=== PATIENT | female | born 1945 | race Caucasian/White ===

== ENCOUNTER → 2016-12-06 | Outpatient (CLI) | payer OTHER ==
[~2016-12-06] MED LIST: ACIDOPHILUS1 EAC3 PO; ADULT LOW DOSE81 MG PO; ATIVAN0.5 MG PO; CITRACAL + D C1 EACH PO; CO Q-1010 MG PO; FISH OIL 1,2001 EAC3 PO; FLAXSEED OIL1000 MG PO; GREEN TEA1 EACH PO; MULTIVITAMINS PO; PREVACID PO; PROTONIX40 M2 PO; RANITIDINE PO; RECLAST 55 MG/100 M IV; SERTRALINE HCL100 MG PO; ULTRAM 50MG TAB50 MG PO; VITAMIN D400 UNI1 PO; ZOCOR 20 MG TAB20 M1 PO; ZOLOFT 50 MG TA50 M1 PO; ZOLOFT100 MG PO
== END ==
LOC: RAD 02:53
DX: Z12.31 Encounter for screening mammogram for malignant neoplasm of breast (principal)

== ENCOUNTER → 2017-12-12 | Outpatient (CLI) | payer OTHER | LOC: RAD 00:43 | DX: Z12.31 Encounter for screening mammogram for malignant neoplasm of breast (principal) ==

== ENCOUNTER → 2018-09-13 | Outpatient (CLI) | payer OTHER | LOC: RAD 13:46 | DX: M25.562 Pain in left knee (principal) ==

== ENCOUNTER → 2018-12-13 | Outpatient (CLI) | payer OTHER | LOC: RAD 02:50 | DX: Z12.31 Encounter for screening mammogram for malignant neoplasm of breast (principal) ==

== ENCOUNTER → 2019-12-17 | Outpatient (CLI) | payer OTHER | LOC: BC 10:01 | DX: Z12.31 Encounter for screening mammogram for malignant neoplasm of breast (principal) ==

== ENCOUNTER → 2020-12-20 | Outpatient (CLI) | payer OTHER, MEDICARE | LOC: BC 10:44 | PROVIDERS: ATTEND Internal Medicine Geriatric Medicine | DX: Z12.31 Encounter for screening mammogram for malignant neoplasm of breast (principal) ==

== ENCOUNTER → 2021-05-11 | Outpatient (CLI) | payer OTHER, MEDICARE | LOC: RAD 12:41 | PROVIDERS: ATTEND Internal Medicine Geriatric Medicine | DX: M47.26 Other spondylosis with radiculopathy, lumbar region (principal); M51.15 Intervertebral disc disorders with radiculopathy, thoracolumbar region ==

== ENCOUNTER → 2021-08-15 | Outpatient (CLI) | payer OTHER, MEDICARE | LOC: MRI 08-09 10:06 | PROVIDERS: ATTEND Internal Medicine Geriatric Medicine | DX: M51.36 Other intervertebral disc degeneration, lumbar region (principal); M79.604 Pain in right leg ==

== ENCOUNTER → 2021-09-13 | Outpatient (CLI) | payer OTHER, MEDICARE ==
[~2021-09-13] VITALS: Ht 167.6 cm; Wt 68.0 kg
[~2021-09-13] MED LIST changes: +MELOXICAM15 MG PO; +NEURONTIN 300M300 M2 PO; +NORVASC5 MG PO; +SERTRALINE HCL150 MG PO; +TEMAZEPAM15 MG PO; +ZOCOR20 MG PO
[2021-09-13 08:54] VITALS: BP 130/78
--- NOTE | 2021-09-13 09:10 | NUR ---
Pain Clinic Assessment: 1. History of Osteoarthritis: Not Applicable History of Rheumatoid Arthritis: Not Applicable 2. Height: 5 ft. 6 in. 167.6 cm. Weight: 150.0 lb. oz. 68.040 kg. Patient's BMI: 24.2 3. Vital Signs: BP: 130/78 Pulse: 98 Resp: 14 Temp: 02 Sat: 97 ECG Mon: 4. Pain Intensity: 5 5. Fall Risk: Dizziness: N Needs help standing or walking: N Fallen in the last 3 months: N Fall risk comments: 6. Patient on Blood Thinner: None 7. History of Hypertension: N 8. Opioid Therapy greater than 6 weeks: Opiate Contract Signed: 9. Risk Assessment Tool Provided: 1 LOW RISK 10. Functional Assessment Tool: 43 11. Recreational Drug Use: Never Drug Type: Tobacco Use: Former Smoker Tobacco Type: Amount or Packs/day: How Many Years: Alcohol Use: No Frequency: Quant:
--- NOTE | 2021-09-14 09:44 | HPC ---
[facility] [place] [address] PAIN MANAGEMENT CONSULTATION Name: ALISON MERLOS Room #: REG [facility].Dorothy.#: [id number] Admission: 09/13/21 Attend Phys: Michael Meza DO Discharge: Date of : 47 Report #: [id number] THIS REPORT FOR: cc: Jared Barton MD,Jared Meza,Michael Lala DO ~ cc: Dr. Jared Barton MD DATE OF SERVICE: 09/13/2021 CHIEF COMPLAINT: Low back pain, right lower extremity pain with paresthesias. HISTORY OF PRESENT ILLNESS: As you know, the patient is a very pleasant 76-year-old female reporting acute onset of low back pain, right lower extremity pain with paresthesias, presenting in May 2021. The patient denies injury or trauma. She states pain begins in the buttock area, radiates down the right leg to the lateral calf. She has sought treatment with [id number] medications, rest, relaxation without much in the way of benefit. She has undergone chiropractic manipulation with some improvement in symptoms. She has been started on gabapentin, taking 300 mg p.o. at bedtime, without side effects, but no benefits. She has undergone recent imaging of the lumbar spine, which showed some changes at the L4-L5 level that prompted a referral on to our clinic to discuss treatment options. The patient reports today her pain is continuous. She describes pain more of tenderness and intermittent numbness and tingling. She describes a pain level at 7/10 today, daily average at 9/10, worst pain has been 10/10. The patient states the pain is exacerbated with walking any long distances, lying on her right side. Pain is improved with ice packs therapy, chiropractic manipulation. She has been referred to our service to discuss interventional treatment options to address suspected lumbar radiculopathy. PAST MEDICAL HISTORY: 1. Chronic low back pain. 2. Asthma, depression, osteoporosis, and cancer. PAST SURGICAL HISTORY: None. SOCIAL HISTORY: The patient denies tobacco, alcohol or IV or illicit drug use. She is retired in 11/2020. She is not receiving workmen's compensation nor is she trying to obtain disability benefits. She is not in litigation in regards to pain. She is unaccompanied at today's visit. REVIEW OF SYSTEMS: Positive for eye disease, wearing corrective eyewear, nocturia, low back pain, and asthma and depression. All other review of systems negative per 12-point review of systems other than those listed in history of present illness. [address] [address] PAIN MANAGEMENT CONSULTATION Name: ALISON MERLOS Room #: REG [facility] Sierra#: [id number] Admission: 09/13/21 Attend Phys: Michael Meza DO Discharge: Date of : 47 Report #: [id number] Pain impact score 43/70, moderate to severe interference of daily activities secondary to pain. ALLERGIES: No known drug allergies. CURRENT MEDICATIONS: Temazepam 15 mg p.o. at bedtime, amlodipine 5 mg per day, gabapentin 300 mg p.o. at bedtime, meloxicam 15 mg per day, sertraline 150 per day, and simvastatin 20 mg per day. IMAGING: MRI lumbar spine obtained 08/15/2021 shows no acute findings. There is multilevel degenerative disk disease, most prevalent at the L4-L5 level, which is moderate in nature. She has moderate facet arthropathy at L4-L5, mild broad-based disk bulge. Hypertrophic ligamentum flavum. No significant central canal stenosis. There is some neural foraminal narrowing at this level. L5-S1 minimal degenerative disk disease, moderate facet arthropathy, mild neural foraminal narrowing.. The L3-4 level shows no significant findings. PQRS: The patient has known arthritic changes of the lumbar spine. No rheumatoid arthritis, placing pain today at 5/10, not a fall risk, has not had a fall in last 3 months. She is not on blood thinners, but is treated for hypertension. She is on no opioids, has a low opioid addiction potential. Pain impact is 43/70. Moderate to severe interference of daily activities secondary to pain. PHYSICAL EXAM: VITAL SIGNS: Blood pressure 130/78, pulse 98, respiratory rate 14 and unlabored. The patient is 97% on room air. Height 5 feet 6 inches tall, weight 150 pounds, BMI calculated 24.2. GENERAL: Well-developed, well-nourished, well-hydrated 76-year-old female appearing her stated age, placing current pain score at 5/10. HEENT: Normocephalic, atraumatic. Pupils equal, round and responsive. She is wearing a facemask in compliance with COVID-19 regulations. Hearing is symmetrical. LUNGS: Clear, no wheeze, rhonchi or rales. CARDIOVASCULAR: Regular. No appreciable gallop or rub. EXTREMITIES: Showed no clubbing, no cyanosis. No appreciable edema. MUSCULOSKELETAL: Lower extremity strength is symmetrical, 5/5, intact to light touch from L1 through S2 dermatomes. Seated straight leg raising negative. Supine straight leg raising is equivocal right, negative for left. Ankle clonus negative. Babinski is negative. Lumbar provocation testing is met with no increase in overall pain. Gait appears normal. She is able to toe walk, heel walk without complications. ASSESSMENT: 1. Lumbar radiculopathy. [facility] [address] [place] [address] PAIN MANAGEMENT CONSULTATION Name: ALISON MERLOS Room #: REG [facility] Sierra#: [id number] Admission: 09/13/21 Attend Phys: Michael Meza DO Discharge: Date of : 47 Report #: [id number] 2. Lumbosacral spondylosis with radicular symptoms. 3. Degeneration of lumbar spine. PLAN: 1. Based on today's physical exam and history, the patient has provided, the description the patient uses in regards to pain as well as location of the symptoms with its distribution from the buttock all the way to the right lateral lower leg, likely source of the patient's symptoms is a lumbar radiculopathy. We discussed with the patient the findings of her MRI. I am pleased to advise the patient that there does not appear to be any surgical need at this point. I do feel conservative treatment would be beneficial. We discussed those treatments after a review of the MRI and how the MRI findings correlate to her symptoms. The following was discussed with the patient, his treatment options. We discussed physical therapy, stretching exercises and core strengthening as a treatment approach. We discussed adjustments in medication management. She is on an extremely low dose of gabapentin and could be quite quickly escalated to doses, which we would find more efficacy. I believe that given her age and her weight, she would likely wind up somewhere between 600 mg 3 times a day, 900 mg 3 times a day to gain analgesic effect. We discussed with the patient lumbar epidural injection under fluoroscopic guidance for which she was referred to our clinic. We also discussed surgical options, though again the minimal findings in her MRI would not require surgical options. After reviewing the risks and benefits of all proposed treatment options, the patient chose to undergo lumbar epidural injection under fluoroscopic guidance. 1. The patient has been advised risks and benefits of a lumbar epidural injection. These risks include but are not necessarily limited to bleeding, bruising, infection, worsening pain, no relief of pain, also risk of temporary or permanent muscle weakness, temporary or permanent nerve damage, possible paralysis, post-dural puncture headache and . The patient states understood and wished to proceed. 2. No medication changes made at today's visit. We recommend the patient continue current medical therapy as prior prescribed. 3. We will plan to see the patient back in followup visit on an as needed basis for the next in the series of lumbar epidural injections. We are hopeful the patient will see good and prolonged benefit with today's procedure. 4. We wish to thank Dr. Jared Barton for the referral of this patient to our clinic. We will keep you apprised of her response to treatment as we address suspected lumbar radiculopathy. Again, we wish to thank you for the opportunity to see the patient in consultation. PROCEDURE NOTE. DESCRIPTION OF PROCEDURE: L5-S1 right parasagittal epidural steroid injection under fluoroscopic guidance. [address] [address] PAIN MANAGEMENT CONSULTATION Name: ALISON MERLOS Room #: REG [facility]#: [id number] Admission: 09/13/21 Attend Phys: Michael Meza DO Discharge: Date of : 47 Report #: [id number] This is the first procedure of the first series that the patient is undergoing. After obtaining written consent, the patient was taken back to the fluoroscopy suite, placed in a prone position with pillow under the abdomen to decrease lumbar lordosis. The skin overlying the lumbosacral area was then prepped and draped in aseptic fashion. The L5-S1 vertebral interspace was then identified by AP fluoroscopy. The skin and subcutaneous tissue overlying the target site of injection was anesthetized with 3 mL 1% lidocaine. A 20-gauge 3-1/2 inch Tuohy needle was then advanced under fluoroscopic guidance towards the epidural space using a right parasagittal approach. The epidural space was identified using loss of resistance to air technique. After negative aspiration for heme or cerebrospinal fluid, a total of 1 mL of Omnipaque was injected. A lumbar epidurogram was confirmed using both AP and lateral fluoroscopy. After negative aspiration for heme or cerebrospinal fluid, 5 mL of a solution containing 2 mL 40 mg per mL 80 mg total triamcinolone along with 3 mL of lidocaine 1% was injected in increments. Contrast spread was noted in posterior epidural space. The needle was then retracted approximately half way and needle tract flushed with 1 mL of 1% lidocaine. Needle was then removed. There were no apparent sensory or motor deficits in the lower extremity following the procedure. A sterile bandage was placed over the injection site. The heart rate, pulse, oximetry and blood pressure were continuously monitored after the procedure. There were no apparent complications. The patient tolerated the procedure well and was carefully escorted to the recovery room in stable condition. There were no apparent complications. After meeting discharge criteria, the patient was then discharged home. <ELECTRONICALLY SIGNED> By: Michael eMza DO 09/14/21 [id number] Michael Meza DO /nt
== END | disposition home or self-care (01) ==
LOC: PAIN 06:50
PROVIDERS: ATTEND Anesthesiology Pain Medicine
DX: M51.16 Intervertebral disc disorders with radiculopathy, lumbar region (principal); M47.27 Other spondylosis with radiculopathy, lumbosacral region; G89.29 Other chronic pain; I10 Essential (primary) hypertension; J45.909 Unspecified asthma, uncomplicated; F32.9 Major depressive disorder, single episode, unspecified; M81.0 Age-related osteoporosis without current pathological fracture; Z98.890 Other specified postprocedural states; Z79.899 Other long term (current) drug therapy